=== PATIENT | male | born 1975 | race American Indian/Alaskan Native ===

== ENCOUNTER 2016-08-19 12:25 | Emergency (ER) | payer BC ==
[2016-08-19] MEDS: TYLENOL PO ONE (12:43)
[2016-08-19 13:12] LABS: Basophils % (Auto) 0.4 % (0.0-1.8); Eosinophils % (Auto) 0.8 % (0.0-4.3); Mean Corpuscular HGB Conc 30 % (32-34); Mean Corpuscular Volume 71 fl (84-94); Platelet Count 223 K/mm3 (140-440); Red Blood Count 6.17 M/mm3 (3.65-5.03); Red Cell Distribution Width 13.9 % (13.2-15.2); White Blood Count 13.9 K/mm3 (4.5-11.0)
[2016-08-19 13:17] LABS: Hematocrit 43.8 % (35.5-45.6); Hemoglobin 13.3 gm/dl (11.8-15.2); Mean Corpuscular Hemoglobin 22 pg (28-32)
--- NOTE | 2016-08-19 14:20 | XRay Report ---
ROUTINE CHEST, TWO VIEWS: HISTORY: Shortness of breath. The trachea, heart, mediastinal contour, lung barcenas and bony thorax are unremarkable. IMPRESSION: Unremarkable chest x-ray.
[2016-08-19 14:36] LABS: Anion Gap 18 mmol/L; BUN/Creatinine Ratio 9.16; Blood Urea Nitrogen 11 mg/dL (9-20); Calcium 9.3 mg/dL (8.4-10.2); Carbon Dioxide 27 mmol/L (22-30); Chloride 99.7 mmol/L (98-107); Glucose 101 mg/dL (75-100); Potassium 4.2 mmol/L (3.6-5.0); Sodium 140 mmol/L (137-145)
[2016-08-19] MEDS: CATAPRES PO ONE (15:56)
--- NOTE | 2016-08-19 19:09 | Emergency Department Report ---
- General Chief Complaint: High BP Stated Complaint: CHEST PAIN Time Seen by Provider: 08/19/16 15:35 Source: patient Mode of arrival: Ambulatory Limitations: No Limitations - History of Present Illness Initial Comments: 41-year-old male with a past medical history childhood asthma, CHF, hypertension , and obesity presents to the hospital complains of cough and congestion and left ankle pain. Cough and congestion 2 weeks. Cough productive of green mucus. He has had nasal congestion. No reports of chest pain or shortness of breath. + subjective fever Left ankle pain chronic and intermittent. Patient has had worsening medial left ankle pain for the past 4 days. Pain is constant, throbbing, worse on movement and palpation. Rated 4/10 intensity. - Related Data Home Medications Medication Instructions Recorded Confirmed Last Taken Furosemide [Lasix TAB] 80 mg PO BID 08/19/16 08/19/16 Unknown Previous Rx's Medication Instructions Recorded Last Taken Type Azithromycin [Zithromax Z-CADEN] 1 dose PO DAILY 5 Days 08/19/16 Unknown Rx Carvedilol [Coreg] 25 mg PO BID #60 tablet 08/19/16 Unknown Rx Furosemide [Lasix TAB] 40 mg PO BID #60 tablet 08/19/16 Unknown Rx HYDROcodone/APAP 5-325 [[place] 1 each PO Q6HR PRN #20 tablet 08/19/16 Unknown Rx 5/325] Indomethacin 50 mg PO Q8H PRN #30 capsule 08/19/16 Unknown Rx Lisinopril [Zestril TAB] 20 mg PO QDAY #30 tablet 08/19/16 Unknown Rx Sodium Chloride [Saline Nasal 1 spray NS PRN PRN #1 bottle 08/19/16 Unknown Rx [place]] Allergies Allergy/AdvReac Type Severity Reaction Status Date / Time shellfish derived Allergy Swelling Verified 08/19/16 12:31 ED Review of Systems ROS: Stated complaint: CHEST PAIN Other details as noted in HPI Comment: All other systems reviewed and negative Other: Constitutional: subjective fever Eyes: No eye pain visual changes ENT: No ear pain or throat pain Neck: Denies pain Respiratory: as per hpi Cardiovascular: Denies chest pain, palpitations, syncope GI: Denies abdominal pain, nausea, vomiting, diarrhea : Denies dysuria Musculoskeletal: as per hpi Skin: Denies rash, lesions, erythema Neurologic: Denies headache, numbness, weakness Psychiatric: Denies suicidal ideation, hallucinations ED Past Medical Hx - Past Medical History Hx Hypertension: Yes Hx Congestive Heart Failure: Yes Hx Asthma: Yes (CHILD) - Surgical History Past Surgical History?: No - Social History Smoking Status: Never Smoker Substance Use Type: None - Medications Home Medications: Home Medications Medication Instructions Recorded Confirmed Last Taken Type Azithromycin [Zithromax Z-CADEN] 1 dose PO DAILY 5 Days 08/19/16 Unknown Rx Carvedilol [Coreg] 25 mg PO BID #60 tablet 08/19/16 Unknown Rx Furosemide [Lasix TAB] 40 mg PO BID #60 tablet 08/19/16 Unknown Rx Furosemide [Lasix TAB] 80 mg PO BID 08/19/16 08/19/16 Unknown History HYDROcodone/APAP 5-325 [[place] 1 each PO Q6HR PRN #20 tablet 08/19/16 Unknown Rx 5/325] Indomethacin 50 mg PO Q8H PRN #30 capsule 08/19/16 Unknown Rx Lisinopril [Zestril TAB] 20 mg PO QDAY #30 tablet 08/19/16 Unknown Rx Sodium Chloride [Saline Nasal 1 spray NS PRN PRN #1 bottle 08/19/16 Unknown Rx [place]] ED Physical Exam - General Limitations: No Limitations - Other Other exam information: General: No limitations, patient is alert in no acute distress Head exam: Atraumatic, normocephalic Eyes exam: Normal appearance ENT: Moist mucous membrane, normal oropharynx, positive nasal congestion Neck exam: Normal inspection, full range of motion Respiratory exam: Clear to auscultation bilateral, no wheezes, rales, crackles Cardiovascular: Normal rate and rhythm, normal heart sounds Abdomen: Soft, nondistended, and nontender, with normal bowel sounds, no rebound, or guarding Extremity: Full range of motion, left ankle tenderness medially with localized swelling and warmth. No erythema. 2+ bilateral DP pulse Back: Normal Inspection, full range of motion, no tenderness Neurologic: Alert, oriented x3, cranial nerves intact, no motor or sensory deficit Psychiatric: normal affect, normal mood Skin: Warm, dry, intact ED Course Vital Signs 08/19/16 08/19/16 08/19/16 12:32 12:43 15:32 Temperature 100.0 F H Pulse Rate 126 H Respiratory 28 H 22 Rate Blood Pressure 202/146 Blood Pressure [Right] O2 Sat by Pulse 96 99 Oximetry 08/19/16 08/19/16 08/19/16 15:41 15:42 15:51 Temperature 97.5 F L Pulse Rate 95 H 104 H 88 Respiratory 20 20 19 Rate Blood Pressure 208/127 187/131 Blood Pressure 208/127 [Right] O2 Sat by Pulse 99 98 99 Oximetry 08/19/16 08/19/16 08/19/16 15:56 16:00 16:11 Temperature Pulse Rate 106 H 82 97 H Respiratory 17 16 Rate Blood Pressure 187/131 193/130 193/130 Blood Pressure [Right] O2 Sat by Pulse 95 97 Oximetry 08/19/16 08/19/16 08/19/16 16:21 16:30 16:41 Temperature Pulse Rate 83 83 84 Respiratory 16 19 16 Rate Blood Pressure 173/125 181/135 181/135 Blood Pressure [Right] O2 Sat by Pulse 99 96 97 Oximetry 08/19/16 08/19/16 08/19/16 16:51 17:00 17:11 Temperature Pulse Rate 93 H 79 87 Respiratory 22 18 20 Rate Blood Pressure 177/119 160/109 160/109 Blood Pressure [Right] O2 Sat by Pulse 96 94 95 Oximetry 08/19/16 08/19/16 08/19/16 17:21 17:31 17:41 Temperature Pulse Rate 77 82 83 Respiratory 19 17 21 Rate Blood Pressure 158/117 158/117 158/117 Blood Pressure [Right] O2 Sat by Pulse 95 95 97 Oximetry 08/19/16 08/19/16 08/19/16 17:51 18:00 18:07 Temperature 98.3 F Pulse Rate 84 87 101 H Respiratory 21 21 18 Rate Blood Pressure 158/117 141/98 Blood Pressure 141/98 [Right] O2 Sat by Pulse 98 95 95 Oximetry 08/19/16 08/19/16 08/19/16 18:11 18:21 18:31 Temperature Pulse Rate 86 91 H 88 Respiratory 19 20 18 Rate Blood Pressure 141/98 141/98 141/98 Blood Pressure [Right] O2 Sat by Pulse 96 94 97 Oximetry 08/19/16 18:41 Temperature Pulse Rate 101 H Respiratory 17 Rate Blood Pressure 141/98 Blood Pressure [Right] O2 Sat by Pulse 96 Oximetry - Reevaluation(s) Reevaluation #1: 08/19/16 19:27 Patient declined pain medication and ED. BP improved with clonidine 0.2 mg ED Medical Decision Making - Lab Data Result diagrams: 08/19/16 12:51 08/19/16 Unknown Lab Results 08/19/16 08/19/16 08/19/16 Range/Units 12:51 13:28 Unknown WBC 13.9 H (4.5-11.0) K/mm3 RBC 6.17 H (3.65-5.03) M/mm3 Hgb 13.3 (11.8-15.2) gm/dl Hct 43.8 (35.5-45.6) % MCV 71 L (84-94) fl MCH 22 L (28-32) pg MCHC 30 L (32-34) % RDW 13.9 (13.2-15.2) % Plt Count 223 (140-440) K/mm3 Lymph % (Auto) 9.7 L (13.4-35.0) % [place] % (Auto) 8.2 H (0.0-7.3) % Eos % (Auto) 0.8 (0.0-4.3) % Baso % (Auto) 0.4 (0.0-1.8) % Lymph # 1.3 (1.2-5.4) K/mm3 [place] # 1.1 H (0.0-0.8) K/mm3 Eos # 0.1 (0.0-0.4) K/mm3 Baso # 0.1 (0.0-0.1) K/mm3 Seg Neutrophils % 80.9 H (40.0-70.0) % Seg Neutrophils # 11.2 H (1.8-7.7) K/mm3 Sodium 140 (137-145) mmol/L Potassium 4.2 (3.6-5.0) mmol/L Chloride 99.7 (98-107) mmol/L Carbon Dioxide 27 (22-30) mmol/L Anion Gap 18 mmol/L BUN 11 (9-20) mg/dL Creatinine 1.2 (0.8-1.5) mg/dL Estimated GFR > 60 ml/min BUN/Creatinine Ratio 9.16 % Glucose 101 H (75-100) mg/dL Lactic Acid 0.8 (0.7-2.0) mmol/L Calcium 9.3 (8.4-10.2) mg/dL Troponin T < 0.010 (0.00-0.029) ng/mL NT-Pro-B Natriuret Pep 209.7 (0-450) pg/mL - EKG Data -: EKG Interpreted by Me (sinus 114, no stemi) - EKG Data When compared to previous EKG there are: previous EKG unavailable - Radiology Data Radiology results: report reviewed (chest x-ray: No acute finding) - Medical Decision Making Patient have a cough cold and congestion since low-grade temperature. Chest x- ray is unremarkable. Patient recovered with a Z-Caden since symptoms going on for 2 weeks. Patient also complaining of intermittent chronic left ankle pain. Clinically the left ankle has medial swelling and warmth. It is possible that patient has gouty arthritis. No skin erythema noted. Patient be discharged on indomethacin and [place]. Blood pressure improved with clonidine 0.2 mg in the ED. His medications will be refilled. Patient states in addition to Lasix and Coreg he reports a dose of Lasix 80 mg twice a day. Patient's been off these meds for 3-4 weeks and has not experienced any CHF or edema some hesitant to restart this large dose. Instead patient was started on Lasix 40 mg twice a day, instructed to eat bananas, and to follow very closely with his doctor for further medication adjustment - Differential Diagnosis pneumonia, bronchitis, arthritis, gout, hypertensive emergency Critical Care Time: No Critical care attestation.: If time is entered above; I have spent that time in minutes in the direct care of this critically ill patient, excluding procedure time. ED Disposition Clinical Impression: Acute bronchitis, Nasal congestion, Uncontrolled hypertension, Noncompliance with medication regimen, Medication refill, Right ankle pain Disposition: DISCHARGED TO HOME OR SELFCARE Is pt being admited?: No Does the pt Need Aspirin: No Condition: Stable Instructions: Acute Bronchitis (ED), Hypertension (ED), Acute Gouty Arthritis ( ED) Additional Instructions: Take the medication as prescribed. 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 I have reduced the dose of Lasix and to haven't had any significant edema since discontinued the medication. If edema worsens while on the reduced dose she may increase back to 80 mg twice a day. Please note that she wear wrist of his potassium dropping a becoming dehydrated with increasing Lasix doses. Your left ankle pain and could be secondary to gout. Follow-up with with a primary care doctor for further evaluation. You may also benefit from orthopedic follow-up as well for your ankle Prescriptions: Azithromycin [Zithromax Z-CADEN] 1 dose PO DAILY 5 Days Carvedilol [Coreg] 25 mg PO BID #60 tablet Furosemide [Lasix TAB] 40 mg PO BID #60 tablet HYDROcodone/APAP 5-325 [[place] 5/325] 1 each PO Q6HR PRN #20 tablet PRN Reason: Pain Indomethacin 50 mg PO Q8H PRN #30 capsule PRN Reason: Pain Lisinopril [Zestril TAB] 20 mg PO QDAY #30 tablet Sodium Chloride [Saline Nasal [place]] 1 spray NS PRN PRN #1 bottle PRN Reason: Nasal Congestion Referrals: [facility] [Provider Group] - 3-5 Days GARRISON PANTOJA MD [Staff Physician] - 3-5 Days (Primary care doctor) ED DUMONT MD [Staff Physician] - 3-5 Days (Orhto doctor) Forms: Work/School Release Form(ED) Time of Disposition: 19:20
[2016-08-19 19:32] VITALS: BP 162/108
== END 2016-08-19 20:05 | disposition home or self-care (01) ==
LOC: ED 12:25
DX: J20.9 Acute bronchitis, unspecified (principal); I10 Essential (primary) hypertension; Z91.14 Patient's other noncompliance with medication regimen; M25.572 Pain in left ankle and joints of left foot; J45.909 Unspecified asthma, uncomplicated
CPT/HCPCS: 36415; 71020; 80048; 82140; 83880; 84484; 85025; 87040; 93005; 93010; 99284

== ENCOUNTER 2020-06-17 06:29 | Emergency (ER) | payer SELFPAY ==
--- NOTE | 2020-06-17 06:38 | Event Note ---
ED Screening Note Date of service: 06/17/20 Time: 06:38 ED Screening Note: Patient complains of sudden onset of left knee pain Denies injury or history of gout This initial assessment/diagnostic orders/clinical plan/treatment(s) is/are subject to change based on patients health status, clinical progression and re- assessment by fellow clinical providers in the ED. Further treatment and workup at subsequent clinical providers discretion. Patient/guardian urged not to elope from the ED as their condition may be serious if not clinically assessed and managed. Initial orders include: X-ray
[2020-06-17 06:43] VITALS: BP 211/154
--- NOTE | 2020-06-17 07:13 | XRay Report ---
LEFT KNEE 4 VIEW(S) INDICATION / CLINICAL INFORMATION: pain and swelling, no injury COMPARISON: None available. FINDINGS: BONES / JOINT(S): No acute fracture or subluxation. Moderate tricompartmental degenerative arthrosis. Moderate joint effusion. SOFT TISSUES: No significant abnormality. ADDITIONAL FINDINGS: None. Signer Name: Nic Garcia MD Signed: 06/17/2020 7:08 AM Workstation Name: [id number]
[2020-06-17] MEDS ORDERED: cloNIDine 0.2 MG TAB PO ONE (07:58)
--- NOTE | 2020-06-17 07:58 | Emergency Department Report ---
HPI - General Chief Complaint: Extremity Injury, Upper Time Seen by Provider: 06/17/20 06:35 - HPI HPI: Room 36 The patient is a 44-year-old male present with a chief complaint of left knee pain. Patient states for 1 week he has had left knee pain and swelling. Patient denies any recent trauma but states while working 1 week ago he felt his left knee becoming tight and swelling up. After he gotten off work the following morning the patient states he had a lot of difficulty getting up the stairs. Patient states his pain is preventing him from working for the past week. Patient denies history of fever ED Past Medical Hx - Past Medical History Hx Hypertension: Yes Hx Congestive Heart Failure: Yes Hx Asthma: Yes (CHILD) - Surgical History Past Surgical History?: No - Family History Family history: no significant - Social History Smoking Status: Never Smoker Substance Use Type: None - Medications Home Medications: Home Medications Medication Instructions Recorded Confirmed Last Taken Type Azithromycin [Zithromax Z-CADEN] 1 dose PO DAILY 5 Days tab 08/19/16 Unknown Rx Furosemide [Lasix TAB] 40 mg PO BID #60 tablet 08/19/16 Unknown Rx Furosemide [Lasix TAB] 80 mg PO BID 08/19/16 08/19/16 Unknown History HYDROcodone/APAP 5-325 [[place] 1 each PO Q6HR PRN #20 tablet 08/19/16 Unknown Rx 5/325] Indomethacin 50 mg PO Q8H PRN #30 capsule 08/19/16 Unknown Rx Sodium Chloride [Saline Nasal 1 spray NS PRN PRN #1 bottle 08/19/16 Unknown Rx [place]] carvediloL [Coreg] 25 mg PO BID #60 tablet 08/19/16 Unknown Rx lisinopriL [Zestril TAB] 20 mg PO QDAY #30 tablet 08/19/16 Unknown Rx Colchicine [Colcrys] 0.6 mg PO DAILY #30 tablet 06/17/20 Unknown Rx HYDROcodone/APAP 5-325 [[place] 1 - 2 each PO Q6HR PRN #14 tablet 06/17/20 Unknown Rx 5/325] Ibuprofen [Motrin 800 MG tab] 800 mg PO Q8HR PRN #20 tablet 06/17/20 Unknown Rx ED Review of Systems ROS: Stated complaint: LT KNEE PAIN Other details as noted in HPI Constitutional: denies: fever Eyes: denies: eye pain ENT: denies: throat pain Respiratory: no symptoms reported Cardiovascular: denies: chest pain Endocrine: no symptoms reported Gastrointestinal: denies: abdominal pain Genitourinary: denies: dysuria Musculoskeletal: arthralgia Neurological: denies: headache Physical Exam - Physical Exam Vital Signs: Vital Signs 06/17/20 06:39 Temperature 98.1 F Pulse Rate 111 H Respiratory 16 Rate Blood Pressure 211/154 [Right] O2 Sat by Pulse 98 Oximetry Physical Exam: GENERAL: The patient is well-developed well-nourished male lying on stretcher appearing to be in mild discomfort. [] HEENT: Normocephalic. Atraumatic. Extraocular motions are intact. Patient has moist mucous membranes. NECK: Supple. Trachea midline CHEST/LUNGS: There is no respiratory distress noted. HEART/CARDIOVASCULAR: Regular. There is no tachycardia. There is no gallop rub or murmur. ABDOMEN: Abdomen is soft, nontender. Patient has normal bowel sounds. There is no abdominal distention. SKIN: There is no rash. There is no edema. There is no diaphoresis. NEURO: The patient is awake, alert, and oriented. The patient is cooperative. The patient has no focal neurologic deficits. The patient has normal speech MUSCULOSKELETAL: There is a moderate left knee effusion. There is no overlying skin change. There is no evidence of acute injury. ED Course Vital Signs 06/17/20 06:39 Temperature 98.1 F Pulse Rate 111 H Respiratory 16 Rate Blood Pressure 211/154 [Right] O2 Sat by Pulse 98 Oximetry - Joint Aspiration/Injection Consent Obtained: verbal consent Time Out Performed: Yes Indications: R/O septic arthritis Side of Body: left Joint Aspirated: knee Ultrasound Guidance: No Skin Prep: Povidone-Iodine1% Local Anesthesia Used: with Epi Amount of Anesthesia Used (mls): 4 Needle Size Used: 18G Syringe Size Used: Other (30) Fluid Obtained: clear Total Fluid Obtained (mls): 27 Patient Tolerated Procedure: well Complications: none ED Medical Decision Making - Lab Data Laboratory Tests 06/17/20 08:46 Fluid Type Synovial Fluid Color Yellow Fluid Appearance Hazy Fluid WBC 91047 Fluid RBC 85068 Synovial Crystals Msu crystals - Radiology Data Radiology results: report reviewed (Left knee x-ray), image reviewed (Left knee x-ray) interpreted by me: Left knee x-ray-no acute fracture, no foreign body. No dislocation. [facility] [address] [place] [address] XRay Report Signed Patient: JENNIFER MENDEZ MR#: [id number] : 1975 Acct:[id number] Age/Sex: 44 / M ADM Date: 06/17/20 Loc: ED Attending Dr: Ordering Physician: SUSSY AGARWAL Date of Service: 06/17/20 Procedure(s): XR knee 3V LT Accession Number(s): [id number] cc: SUSSY AGARWAL Fluoro Time In Minutes: LEFT KNEE 4 VIEW(S) INDICATION / CLINICAL INFORMATION: pain and swelling, no injury COMPARISON: None available. FINDINGS: BONES / JOINT(S): No acute fracture or subluxation. Moderate tricompartmental degenerative arthrosis. Moderate joint effusion. SOFT TISSUES: No significant abnormality. ADDITIONAL FINDINGS: None. Signer Name: Nic Garcia MD Signed: 06/17/2020 7:08 AM Workstation Name: [id number] Transcribed By: TL Dictated By: Nic Garcia MD Electronically Authenticated By: Nic Garcia MD Signed Date/Time: 06/17/20707 DD/ 7 TD/TT: - Differential Diagnosis Arthritis Critical care attestation.: If time is entered above; I have spent that time in minutes in the direct care of this critically ill patient, excluding procedure time. ED Disposition Clinical Impression: Acute gouty arthritis, Left knee pain Disposition: DC- TO HOME OR SELFCARE Is pt being admited?: No Does the pt Need Aspirin: No Condition: Stable Instructions: Low-Purine Eating Plan Additional Instructions: Return to the emergency department should you develop worsening symptoms, inab ility to tolerate food or liquids, high fever or any other concerns Prescriptions: Colchicine [Colcrys] 0.6 mg PO DAILY #30 tablet Ibuprofen [Motrin 800 MG tab] 800 mg PO Q8HR PRN #20 tablet PRN Reason: Pain, Moderate (4-6) HYDROcodone/APAP 5-325 [[place] 5/325] 1 - 2 each PO Q6HR PRN #14 tablet PRN Reason: Pain Referrals: JUSTINE SCHMIDT MD [Staff Physician] - 3-5 Days (Dr. Schmidt is a primary physician. Please follow-up with him to be established as a patient) CORAL BRANTLEY MD [Staff Physician] - 3-5 Days (Dr. Brantley is an orthopedic surgeon. Please follow-up with him for further evaluation) Time of Disposition: 11:34
[2020-06-17] MEDS ORDERED: LIDOCAINE 1%/EPINEPHRINE 1:100,000 VIAL (20 ML) INFILTRATI ONE (08:04)
[2020-06-17] MEDS ORDERED: COLCHICINE 0.6 MG TAB PO ONE (12:00)
[2020-06-17 15:25] LABS: Total Cells Counted 100 /mm3
== END 2020-06-17 12:07 | disposition home or self-care (01) ==
LOC: ED 06:29
DX: M10.9 Gout, unspecified (principal); M25.562 Pain in left knee; I11.0 Hypertensive heart disease with heart failure; I50.9 Heart failure, unspecified; J45.909 Unspecified asthma, uncomplicated; Z79.899 Other long term (current) drug therapy; Z91.013 Allergy to seafood
CPT/HCPCS: 85048; 89051; 99283